=== PATIENT | female | born 1940 | race Caucasian/White ===

== ENCOUNTER 2019-03-04 16:40 | Inpatient (IN) | payer OTHER ==
[2019-03-04 17:34] VITALS: BMI 27.0
--- NOTE | 2019-03-04 20:06 | HP ---
COWS - Scale Resting Pulse: 2= [place] 101-120 Sweatin=Flushed/Facial Moisture (Patient w/ elevated blood pressure despite taking HTN meds earlier.) Restless Observation: 0= Sits Still Pupil Size: 2= Moderately Dilated (Pupils = 5 mm) Bone or Joint Aches: 0= None Runny Nose/ Eye Tearin= Runny Nose/Eyes GI Upset > 30mins: 0= None Tremor Observation: 2= Slight Tremor Visible Yawning Observation: 0= None Anxiety or Irritability: 1=Feels Anxious/Irritable Goose Flesh Skin: 0=Smooth Skin COWS Score: 11 CIWA Score - Admission Criteria OASAS Guidelines: Admission for Medically Managed Detox: Requires at least one of the followin. CIWA greater than 12 2. Seizures within the past 24 hours 3. Delirium tremens within the past 24 hours 4. Hallucinations within the past 24 hours 5. Acute intervention needed for co occurring medical disorder 6. Acute intervention needed for co occurring psychiatric disorder 7. Severe withdrawal that cannot be handled at a lower level of care (continued vomiting, continued diarrhea, abnormal vital signs) requiring intravenous medication and/or fluids 8. Admission ROS [facility] Chief Complaint: Here to get off of oxycodone. Allergies/Adverse Reactions: Allergies Allergy/AdvReac Type Severity Reaction Status Date / Time No Known Allergies Allergy Verified 03/04/19 17:24 History of Present Illness: 79 yo w/ hx prescribed opiate use for 5 years now being discontinued by PCP. I spoke w/ Dr. Tommie Ruiz who states that patient can be detoxed from oxycodone and he will no longer be prescribing. [facility] patient was also subsidizing medication w/ husbands opiates. Was recommended by [facility] ED for detox beciause of hx taking more medications than prescribed. . ANDREW: 0.0 UTox: + OXY Oxycodone use x 5 years . States was taking 4 per day and then increased to between 6-8/day. Last took one tab this am. Fiorecet(w/codeine) x 5 years. States was taking 2-3 tabs/day. Denies alcohol use. Denies nicotine use. Denies blackouts, seizures, overdoses. Denies falls. PMHx: HTN. Headaches, GERD, UTI MHHx: Anxiety, Insomnia. Denies depression. Denies thoughts of harming self or others. SHx: Domiciled. Retired. Denies legal issues. Based on age and substance use hx, will start on a moderate split dose taper. Patient Name: Josie Castle Date: 1940 Address: [address] [place] [address] Sex: Female Rx Written Rx Dispensed Drug Quantity Days Supply Prescriber Name 02/28/2019 02/28/2019 oxycodone-acetaminophen 10-325 mg tab 15 4 Sagrario Stewart Patient Name: Josie Castle Date: 1940 Address: [address] [place] [address] Sex: Female Rx Written Rx Dispensed Drug Quantity Days Supply Prescriber Name 12/06/2018 02/09/2019 aiuoztztko-fzrq-scrktorosawlo-cod cap 120 30 Tommie Ruiz MD 01/27/2019 02/09/2019 zolpidem tartrate 10 mg tablet 30 30 Tommie Ruiz MD 01/24/2019 02/01/2019 oxycodone-acetaminophen 10-325 mg tab 120 30 Tommie Ruiz MD 01/25/2019 01/25/2019 oxycodone hcl 5 mg tablet 12 3 Tommie Ruiz MD 01/24/2019 01/24/2019 clonazepam 0.5 mg tablet 60 30 Tommie Ruiz MD 08/30/2018 01/11/2019 zolpidem tartrate 10 mg tablet 30 30 Tommie Ruiz MD 12/06/2018 01/11/2019 zskxywkkrm-mzhc-oyxrwoqmwlitj-cod cap 120 30 Tommie Ruiz MD 12/29/2018 01/02/2019 oxycodone-acetaminophen 10-325 mg tab 120 30 Tommie Ruiz MD 08/30/2018 12/17/2018 zolpidem tartrate 10 mg tablet 30 30 Tommie Ruiz MD 12/06/2018 12/17/2018 scxweqjfal-dhpj-oahacjnatryib-cod cap 120 30 Tommie Ruiz MD 12/06/2018 12/08/2018 oxycodone-acetaminophen 10-325 mg tab 120 30 Tommie Ruiz MD 07/15/2018 11/22/2018 spvpsvvxlc-kxjg-knbufecgqdhjf-cod cap 120 30 Thanh Ruizw M MD 08/30/2018 11/22/2018 zolpidem tartrate 10 mg tablet 30 30 RuizTommie MD 11/18/2018 11/22/2018 clonazepam 0.5 mg tablet 60 30 RuizTommie MD 11/09/2018 11/12/2018 oxycodone-acetaminophen 10-325 mg tab 120 30 Ruiz, Tommie Lugo MD 07/15/2018 10/28/2018 taraowofpb-tqtg-znxebtgovtffv-cod cap 120 30 Ruiz, Tommie Lugo MD 08/30/2018 10/28/2018 zolpidem tartrate 10 mg tablet 30 30 Ruiz, Tommie Lugo MD 10/14/2018 10/17/2018 oxycodone-acetaminophen 10-325 mg tab 120 30 Ruiz, Tommie Lugo MD 07/15/2018 10/03/2018 mifnlnaxeh-teep-lyfsoiuxemblq-cod cap 120 30 Ruiz, Tommie Lugo MD 08/30/2018 10/03/2018 zolpidem tartrate 10 mg tablet 30 30 RuizTommie MD 09/20/2018 09/21/2018 oxycodone-acetaminophen 10-325 mg tab 120 30 Ruiz, Tommie Lugo MD 07/15/2018 09/07/2018 fredxkrdca-iqxu-jkwmpuluobfxn-cod cap 120 30 RuizTommie MD 08/30/2018 09/07/2018 zolpidem tartrate 10 mg tablet 30 30 RuizTommie MD 09/06/2018 09/07/2018 clonazepam 0.5 mg tablet [address] [facility] 08/26/2018 08/27/2018 oxycodone-acetaminophen 10-325 mg tab 120 30 RuizTommie MD 04/06/2018 08/12/2018 zolpidem tartrate 10 mg tablet 30 30 RuizTommei MD 07/15/2018 08/12/2018 ypjlcdzlam-oywl-nlalzkseczooq-cod cap 120 30 RuizTommie MD 07/29/2018 08/02/2018 oxycodone-acetaminophen 10-325 mg tab 120 30 RuizTommie MD 04/06/2018 07/19/2018 zolpidem tartrate 10 mg tablet 30 30 RuizTommie MD 07/15/2018 07/19/2018 oleouwwzos-txsk-hgfshgostxenl-cod cap 120 30 Tommie Ruiz MD 07/01/2018 07/08/2018 oxycodone-acetaminophen 10-325 mg tab 120 [address] [facility] 07/01/2018 07/06/2018 clonazepam 0.5 mg tablet 60 [address] [facility] 02/16/2018 06/24/2018 kernmplbrp-jycj-smqbqifpecqwj-cod cap 120 [address] [facility] 04/06/2018 06/24/2018 zolpidem tartrate 10 mg tablet 30 30 Tommie Ruiz MD 06/07/2018 06/13/2018 oxycodone-acetaminophen 10-325 mg tab 120 30 Tommie Ruiz MD 02/16/2018 05/30/2018 dmiwjmthpq-spqc-vxayzztbcjwjo-cod cap [address] [facility] 04/06/2018 05/30/2018 zolpidem tartrate 10 mg tablet 30 30 RuizTommie MD 05/13/2018 05/18/2018 oxycodone-acetaminophen 10-325 mg tab 120 30 Tommie Ruiz MD 02/16/2018 05/05/2018 cphgzlejcv-wilk-vxyzoqlvcsoxs-cod cap [address] [facility] 04/06/2018 05/05/2018 zolpidem tartrate 10 mg tablet 30 30 RuizTommie MD 04/06/2018 04/23/2018 oxycodone-acetaminophen 10-325 mg tab 120 30 Tommie Ruiz MD 02/16/2018 04/11/2018 rtpiyxutjz-eqvt-wratrjuoxjjbe-cod cap 120 [address] [facility] 04/06/2018 04/08/2018 zolpidem tartrate 10 mg tablet 30 30 Tommie Ruiz MD 04/06/2018 04/08/2018 clonazepam 0.5 mg tablet 60 30 Tommie Ruiz MD 03/15/2018 03/28/2018 oxycodone-acetaminophen 10-325 mg tab [address] [facility] 02/16/2018 03/18/2018 rjeuxslifd-msza-sjwimtfktfqui-cod cap [address] [facility] 10/22/2017 03/15/2018 zolpidem tartrate 10 mg tablet 30 30 Tommie Ruiz MD Exam Limitations: No Limitations - Ebola screening Have you traveled outside of the country in the last 21 days: No (N) Have you had contact with anyone from an Ebola affected area: No Do you have a fever: No - Review of Systems Constitutional: Diaphoresis, Changes in sleep (Diffciulty falling asleep - takes ambien) EENT: reports: Blurred Vision, Nose Congestion Respiratory: reports: No Symptoms reported Cardiac: reports: No Symptoms Reported GI: reports: Diarrhea (watery, brownish-yellowish), Indigestion (GERD) : reports: Burning (Being treated for UTI) Musculoskeletal: reports: No Symptoms Reported Integumentary: reports: No Symptoms Reported, Other (Bruises from bloodwork.) Neuro: reports: Tremors Endocrine: reports: No Symptoms Reported Hematology: reports: No Symptoms Reported Psychiatric: reports: Judgement Intact, Orientated x3, Anxious Patient History - PPD History Previous Implant?: No PPD to be Administered?: Yes - Smoking Cessation Smoking history: Former smoker Have you smoked in the past 12 months: No Hx Chewing Tobacco Use: No Initiated information on smoking cessation: No - Substance & Tx. History Hx Alcohol Use: No Hx Substance Use: No Substance Use Type: Prescribed (Oxycodone) Hx Substance Use Treatment: No - Substances abused Other Other (specify): Percocet Substance route: Oral Frequency: Daily Amount used: 4pills/day Age of first use: 74 Date of last use: 03/04/19 Admission Physical Exam S - Vital Signs Vital Signs: Vital Signs - 24 hr 03/04/19 17:31 Temperature 98.0 F Pulse Rate 104 H Respiratory 18 Rate Blood Pressure 153/89 - Physical General Appearance: Yes: Nourished, Mild Distress, Tremorous HEENTM: Yes: EOMI, Hearing grossly Normal, Normocephalic, Normal Voice, MARII ( Pupils = 5 mm), Pharynx Normal, Nasal Congestion, Rhinorrhea Respiratory: Yes: Lungs Clear (Pulse )x = 97 %), Normal Breath Sounds, No Respiratory Distress Neck: Yes: No masses,lesions,Nodules, Supple Breast: Yes: Breast Exam Deferred Cardiology: Yes: Regular Rhythm, S1, S2, Tachycardia (HR: 104) Abdominal: Yes: Non Tender, Soft, Increased Bowel Sounds Genitourinary: Yes: Other (On antibiotics for UTI) Musculoskeletal: Yes: full range of Motion Extremities: Yes: Normal Capillary Refill, Tremors 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: 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: 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, Fully Oriented, Alert, Motor Strength 5/5 Integumentary: Yes: Normal Color, Warm, Diaphoresis (Increased facial moisture) Lymphatic: Yes: Within Normal Limits - Diagnostic (1) Opioid dependence with withdrawal Current Visit: Yes Status: Acute (2) Essential (primary) hypertension Current Visit: Yes Status: Chronic (3) GERD (gastroesophageal reflux disease) Current Visit: Yes Status: Chronic Qualifiers: Esophagitis presence: without esophagitis Qualified Code(s): K21.9 - Gastro -esophageal reflux disease without esophagitis (4) History of UTI Current Visit: Yes Status: Acute Comment: on prescribed Cipro (5) Tachycardia Current Visit: Yes Status: Acute Cleared for Admission S - Detox or Rehab [facility] Level of Care: Medically Managed Detox Regimen/Protocol: Methadone Claeared for Rehab Admission: No Breathalyzer - Breathalyzer Breathalyzer: 0 Urine Drug Screen - Test Device Lot number: [id number] Expiration date: 10/12/20 - Control Is test valid?: Yes - Results Drug screen NEGATIVE: No Urine drug screen results: OXY-Oxycodone Inpatient Rehab Admission - Rehab Decision to Admit Inpatient rehab admission?: No
[2019-03-04] MEDS ORDERED: MAGNESIUM CITRATE 300 ML BOTTLE PO PRN (20:29)
[2019-03-04] MEDS ORDERED: ACETAMINOPHEN 325 MG TABLET (FP) PO PRN (20:29)
[2019-03-04] MEDS ORDERED: MAG HYDROX/AL HYDROX/SIMETH 30 ML UNIT-DOSE CUP PO PRN (20:29)
[2019-03-04] MEDS ORDERED: MAGNESIUM HYDROX 2400MG/30ML ORAL SUSPENSION 30 ML CUP PO PRN (20:29)
[2019-03-04] MEDS ORDERED: MENTHOL/PHENOL 1 EACH UD MM PRN (20:29)
[2019-03-04] MEDS ORDERED: METHADONE HCL 5 MG TABLET (FOR DETOX USE ONLY) PO ONE (22:00)
[2019-03-04] MEDS ORDERED: METHADONE HCL 5 MG TABLET (FOR DETOX USE ONLY) PO SCH (22:00)
[2019-03-04] MEDS ORDERED: traZODone HCL 50 MG TABLET (FP) PO ONE (23:00)
[2019-03-04] MEDS: THIAMINE HCL 100 MG TABLET (FP) PO SCH (23:15)
[2019-03-04] MEDS: CIPROFLOXACIN 500 MG TABLET (RESTRICTED TO ID) PO SCH (23:15)
[2019-03-04] MEDS: FAMOTIDINE 20 MG TABLET PO SCH (23:15)
[2019-03-05] MEDS: IBUPROFEN 400 MG TABLET (FP) PO PRN ×3 (08:42→21:22)
[2019-03-05 09:31] LABS: HEMATOCRIT 36.3 % (32.4-45.2); HEMOGLOBIN 11.9 GM/dL (10.7-15.3); MCH 32.7 pg (25.7-33.7); MCHC 32.8 g/dl (32.0-36.0); MEAN CELL VOLUME 99.8 fl (80-96); MEAN PLT VOLUME 10.4 fl (7.5-11.1); PLATELET COUNT 156 K/MM3 (134-434); RBC 3.64 M/mm3 (3.60-5.2); RDW 13.5 % (11.6-15.6); WHITE BLOOD COUNT 6.4 K/mm3 (4.0-10.0)
[2019-03-05] MEDS: PRENATAL VITAMINS W/ FOLIC ACID TABLET (FP) PO SCH (10:15)
[2019-03-05] MEDS: FAMOTIDINE 20 MG TABLET PO SCH ×2 (10:15→21:19)
[2019-03-05] MEDS: amLODIPine BESYLATE 10 MG TABLET (FP) PO SCH (10:15)
[2019-03-05] MEDS: METHADONE HCL 5 MG TABLET (FOR DETOX USE ONLY) PO SCH ×2 (10:15→21:20)
[2019-03-05] MEDS: CIPROFLOXACIN 500 MG TABLET (RESTRICTED TO ID) PO SCH ×2 (10:16→21:19)
[2019-03-05] MEDS: METHOCARBAMOL 500 MG TABLET PO PRN (10:16)
[2019-03-05 10:17] LABS: ALBUMIN 3.1 g/dl (3.4-5.0); BILIRUBIN,TOTAL 0.4 mg/dL (0.2-1); BLOOD UREA NITROGEN 19.6 mg/dL (7-18); CALCIUM 8.7 mg/dL (8.5-10.1); TOT PROT 5.9 g/dl (6.4-8.2)
--- NOTE | 2019-03-05 12:22 | PN ---
S CIWA - CIWA Score Nausea/Vomitin-No Nausea/No Vomiting Muscle Tremors: None Anxiety: 3 Agitation: 0-Normal Activity Paroxysmal Sweats: 3 Orientation: 0-Oriented Tacttile Disturbances: 0-None Auditory Disturbances: 0-None Visual Disturbances: 0-None Headache: 2-Mild CIWA-Ar Total Score: 8 BHS Progress Note (SOAP) Subjective: c/o anxiety, headache, and sweats. Objective: 03/05/19 12:23 Vital Signs 03/05/19 03/05/19 06:42 09:27 Temperature 98.8 F 97.2 F L Pulse Rate 78 109 H Respiratory 18 16 Rate Blood Pressure 123/59 L 157/85 Laboratory Last Values WBC 6.4 K/mm3 (4.0-10.0) 03/05/19 07:40 RBC 3.64 M/mm3 (3.60-5.2) 03/05/19 07:40 Hgb 11.9 GM/dL (10.7-15.3) 03/05/19 07:40 Hct 36.3 % (32.4-45.2) 03/05/19 07:40 MCV 99.8 fl (80-96) H 03/05/19 07:40 MCH 32.7 pg (25.7-33.7) 03/05/19 07:40 MCHC 32.8 g/dl (32.0-36.0) 03/05/19 07:40 RDW 13.5 % (11.6-15.6) 03/05/19 07:40 Plt Count 156 K/MM3 (134-434) 03/05/19 07:40 MPV 10.4 fl (7.5-11.1) 03/05/19 07:40 Sodium 142 mmol/L (136-145) 03/05/19 07:40 Potassium 3.0 mmol/L (3.5-5.1) L 03/05/19 07:40 Chloride 110 mmol/L (98-107) H 03/05/19 07:40 Carbon Dioxide 24 mmol/L (21-32) 03/05/19 07:40 Anion Gap 8 MMOL/L (8-16) 03/05/19 07:40 BUN 19.6 mg/dL (7-18) H 03/05/19 07:40 Creatinine 1.0 mg/dL (0.55-1.3) 03/05/19 07:40 Est GFR (CKD-EPI)AfAm 62.93 03/05/19 07:40 Est GFR (CKD-EPI)NonAf 54.30 03/05/19 07:40 Random Glucose 91 mg/dL (74-106) 03/05/19 07:40 Calcium 8.7 mg/dL (8.5-10.1) 03/05/19 07:40 Total Bilirubin 0.4 mg/dL (0.2-1) 03/05/19 07:40 AST 5 U/L (15-37) L 03/05/19 07:40 ALT 12 U/L (13-61) L 03/05/19 07:40 Alkaline Phosphatase 86 U/L (45-117) 03/05/19 07:40 Total Protein 5.9 g/dl (6.4-8.2) L 03/05/19 07:40 Albumin 3.1 g/dl (3.4-5.0) L 03/05/19 07:40 Labs noted. Assessment: 03/05/19 12:23 AOX3, in no respiratory distress. Full ROM, ambulating in the unit. Withdrawal symptoms. Plan: continue detox.
--- NOTE | 2019-03-05 14:36 | EKG ---
Test Reason : Blood Pressure : / mmHG Vent. Rate : 091 BPM Atrial Rate : 091 BPM P-R Int : 156 ms QRS Dur : 088 ms QT Int : 348 ms P-R-T Axes : 049 005 035 degrees QTc Int : 428 ms NORMAL SINUS RHYTHM POSSIBLE LEFT ATRIAL ENLARGEMENT LEFT VENTRICULAR HYPERTROPHY ABNORMAL ECG NO PREVIOUS ECGS AVAILABLE Confirmed by TYSON JANG MD ([id number]) on 03/05/2019 2:35:45 PM Referred By: Miguel Moore Confirmed By:TYSON JANG MD
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
[2019-03-05] MEDS: THIAMINE HCL 100 MG TABLET (FP) PO SCH (21:20)
[2019-03-05] MEDS ORDERED: MELATONIN 5 MG TABLETS PO PRN (23:35)
[2019-03-06] MEDS: IBUPROFEN 400 MG TABLET (FP) PO PRN ×3 (06:10→22:04)
[2019-03-06] MEDS: CIPROFLOXACIN 500 MG TABLET (RESTRICTED TO ID) PO SCH ×2 (10:33→22:05)
[2019-03-06] MEDS: FAMOTIDINE 20 MG TABLET PO SCH ×2 (10:34→22:04)
[2019-03-06] MEDS: METHADONE HCL 5 MG TABLET (FOR DETOX USE ONLY) PO SCH ×2 (10:34→22:05)
[2019-03-06] MEDS: amLODIPine BESYLATE 10 MG TABLET (FP) PO SCH (10:34)
[2019-03-06] MEDS: PRENATAL VITAMINS W/ FOLIC ACID TABLET (FP) PO SCH (10:34)
--- NOTE | 2019-03-06 12:18 | PN ---
BHS COWS - Scale Resting Pulse: 1= [place] 81-100 Sweatin= Chills/Flushing Restless Observation: 0= Sits Still Pupil Size: 1= Pupils >than Normal Bone or Joint Aches: 1= Mild Discomfort Runny Nose/ Eye Tearin= Nasal Congestion GI Upset > 30mins: 0= None Tremor Observation of Outstretched Hands: 1= Tremor [place], Not Seen Yawning Observation: 0= None Anxiety or Irritability: 1=Feels Anxious/Irritable Goose Flesh Skin: 0=Smooth Skin COWS Score: 7 BHS Progress Note (SOAP) Subjective: 79 years old female admitted on 03/04/19 for opiate withdrawal sx management treating with methadone detox regimen chronic headache taking motrin 600 mg po discontinue motrin 400 mg po begin motrin 600 mg po q8h prn c/o trouble sleep at night belsomra 5 mg po x 1 itchy throat no oralpharyngeal redness no swell mucinx 600 mg po bid Objective: 03/06/19 12:21 Vital Signs Temperature 99.0 F 03/06/19 09:14 Pulse Rate 90 03/06/19 09:14 Respiratory Rate 18 03/06/19 09:14 Blood Pressure 147/71 03/06/19 09:14 O2 Sat by Pulse Oximetry (%) 03/06/19 12:22 Laboratory Last Values WBC 6.4 K/mm3 (4.0-10.0) 03/05/19 07:40 RBC 3.64 M/mm3 (3.60-5.2) 03/05/19 07:40 Hgb 11.9 GM/dL (10.7-15.3) 03/05/19 07:40 Hct 36.3 % (32.4-45.2) 03/05/19 07:40 MCV 99.8 fl (80-96) H 03/05/19 07:40 MCH 32.7 pg (25.7-33.7) 03/05/19 07:40 MCHC 32.8 g/dl (32.0-36.0) 03/05/19 07:40 RDW 13.5 % (11.6-15.6) 03/05/19 07:40 Plt Count 156 K/MM3 (134-434) 03/05/19 07:40 MPV 10.4 fl (7.5-11.1) 03/05/19 07:40 Sodium 142 mmol/L (136-145) 03/05/19 07:40 Potassium 3.0 mmol/L (3.5-5.1) L 03/05/19 07:40 Chloride 110 mmol/L (98-107) H 03/05/19 07:40 Carbon Dioxide 24 mmol/L (21-32) 03/05/19 07:40 Anion Gap 8 MMOL/L (8-16) 03/05/19 07:40 BUN 19.6 mg/dL (7-18) H 03/05/19 07:40 Creatinine 1.0 mg/dL (0.55-1.3) 03/05/19 07:40 Est GFR (CKD-EPI)AfAm 62.93 03/05/19 07:40 Est GFR (CKD-EPI)NonAf 54.30 03/05/19 07:40 Random Glucose 91 mg/dL (74-106) 03/05/19 07:40 Calcium 8.7 mg/dL (8.5-10.1) 03/05/19 07:40 Total Bilirubin 0.4 mg/dL (0.2-1) 03/05/19 07:40 AST 5 U/L (15-37) L 03/05/19 07:40 ALT 12 U/L (13-61) L 03/05/19 07:40 Alkaline Phosphatase 86 U/L (45-117) 03/05/19 07:40 Total Protein 5.9 g/dl (6.4-8.2) L 03/05/19 07:40 Albumin 3.1 g/dl (3.4-5.0) L 03/05/19 07:40 RPR Titer Nonreactive (NONREACTIVE) 03/05/19 07:40 lab noted low K+ K+ supplement 03/06/19 12:26 repeat K+ Assessment: 03/06/19 12:26 opiate withdrawal sx Plan: methadone regimen
[2019-03-06] MEDS ORDERED: POTASSIUM CHLORIDE ORAL LIQUID 20 MEQ/15 ML PO ONE ×3 (13:00→17:00)
[2019-03-06] MEDS: guaiFENesin 600 MG TABLET.ER (FP) PO SCH ×2 (15:34→22:05)
[2019-03-06] MEDS ORDERED: SUVOREXANT 5 MG TABLET PO ONE (22:00)
[2019-03-06] MEDS: THIAMINE HCL 100 MG TABLET (FP) PO SCH (22:04)
[2019-03-06] MEDS: ACETAMINOPHEN 325 MG TABLET (FP) PO PRN (23:52)
[2019-03-07] MEDS: IBUPROFEN 600 MG TABLET (FP) PO PRN ×3 (07:18→22:28)
[2019-03-07] MEDS: amLODIPine BESYLATE 10 MG TABLET (FP) PO SCH (10:20)
[2019-03-07] MEDS: PRENATAL VITAMINS W/ FOLIC ACID TABLET (FP) PO SCH (10:20)
[2019-03-07] MEDS: METHADONE HCL 5 MG TABLET (FOR DETOX USE ONLY) PO SCH (10:20)
[2019-03-07] MEDS: FAMOTIDINE 20 MG TABLET PO SCH ×2 (10:21→22:27)
[2019-03-07] MEDS: guaiFENesin 600 MG TABLET.ER (FP) PO SCH ×2 (10:21→22:27)
[2019-03-07 11:54] LABS: EPI CELLS 2.7 /HPF (0-5/HPF); HYALINE CASTS 1 /lpf (0-8); PH,URINE 5.5 (5.0-8.0); URINE APPEARANCE CLEAR; URINE BACTERIA 162.1 /hpf (NEGATIVE); URINE BILIRUBIN NEGATIVE (NEGATIVE); URINE COLOR YELLOW; URINE GLUCOSE (UA) NEGATIVE (NEGATIVE); URINE KETONE NEGATIVE (NEGATIVE); URINE LEUK ESTERASE NEGATIVE (NEGATIVE); URINE NITRITE NEGATIVE (NEGATIVE); URINE PROTEIN 1+ (NEGATIVE); URINE RBC 2 /hpf (0-4); URINE UROBILINOGEN 0.2 mg/dL (0.2-1.0); URINE WBC 2 /hpf (0-5)
--- NOTE | 2019-03-07 13:02 | PN ---
BHS COWS - Scale Resting Pulse: 1= [place] 81-100 Sweatin= No chills or Flushing Restless Observation: 0= Sits Still Pupil Size: 0= Normal to Room Light Bone or Joint Aches: 2= Severe Diffuse Aches Runny Nose/ Eye Tearin= None GI Upset > 30mins: 0= None Tremor Observation of Outstretched Hands: 0= None Yawning Observation: 0= None Anxiety or Irritability: 1=Feels Anxious/Irritable Goose Flesh Skin: 0=Smooth Skin COWS Score: 4 BHS Progress Note (SOAP) Subjective: 79 years old female admitted on 03/04/19 for opiate withdrawal sx management treating with methadone detox regimen feeling better today requests to be seen by a papier mache' molder Objective: 03/07/19 13:01 Vital Signs Temperature 98.6 F 03/07/19 09:29 Pulse Rate 87 03/07/19 09:29 Respiratory Rate 18 03/07/19 09:29 Blood Pressure 150/74 03/07/19 09:29 O2 Sat by Pulse Oximetry (%) Laboratory Last Values WBC 6.4 K/mm3 (4.0-10.0) 03/05/19 07:40 RBC 3.64 M/mm3 (3.60-5.2) 03/05/19 07:40 Hgb 11.9 GM/dL (10.7-15.3) 03/05/19 07:40 Hct 36.3 % (32.4-45.2) 03/05/19 07:40 MCV 99.8 fl (80-96) H 03/05/19 07:40 MCH 32.7 pg (25.7-33.7) 03/05/19 07:40 MCHC 32.8 g/dl (32.0-36.0) 03/05/19 07:40 RDW 13.5 % (11.6-15.6) 03/05/19 07:40 Plt Count 156 K/MM3 (134-434) 03/05/19 07:40 MPV 10.4 fl (7.5-11.1) 03/05/19 07:40 Sodium 142 mmol/L (136-145) 03/05/19 07:40 Potassium 4.0 mmol/L (3.5-5.1) 03/07/19 07:45 Chloride 110 mmol/L (98-107) H 03/05/19 07:40 Carbon Dioxide 24 mmol/L (21-32) 03/05/19 07:40 Anion Gap 8 MMOL/L (8-16) 03/05/19 07:40 BUN 19.6 mg/dL (7-18) H 03/05/19 07:40 Creatinine 1.0 mg/dL (0.55-1.3) 03/05/19 07:40 Est GFR (CKD-EPI)AfAm 62.93 03/05/19 07:40 Est GFR (CKD-EPI)NonAf 54.30 03/05/19 07:40 Random Glucose 91 mg/dL (74-106) 03/05/19 07:40 Calcium 8.7 mg/dL (8.5-10.1) 03/05/19 07:40 Total Bilirubin 0.4 mg/dL (0.2-1) 03/05/19 07:40 AST 5 U/L (15-37) L 03/05/19 07:40 ALT 12 U/L (13-61) L 03/05/19 07:40 Alkaline Phosphatase 86 U/L (45-117) 03/05/19 07:40 Total Protein 5.9 g/dl (6.4-8.2) L 03/05/19 07:40 Albumin 3.1 g/dl (3.4-5.0) L 03/05/19 07:40 Urine Color Yellow 03/07/19 08:00 Urine Appearance Clear 03/07/19 08:00 Urine pH 5.5 (5.0-8.0) 03/07/19 08:00 Ur Specific [place] 1.022 (1.010-1.035) 03/07/19 08:00 Urine Protein 1+ (NEGATIVE) H 03/07/19 08:00 Urine Glucose (UA) Negative (NEGATIVE) 03/07/19 08:00 Urine Ketones Negative (NEGATIVE) 03/07/19 08:00 Urine Blood Negative (NEGATIVE) 03/07/19 08:00 Urine Nitrite Negative (NEGATIVE) 03/07/19 08:00 Urine Bilirubin Negative (NEGATIVE) 03/07/19 08:00 Urine Urobilinogen 0.2 mg/dL (0.2-1.0) 03/07/19 08:00 Ur Leukocyte Esterase Negative (NEGATIVE) 03/07/19 08:00 Urine WBC (Auto) 2 /hpf (0-5) 03/07/19 08:00 Urine RBC (Auto) 2 /hpf (0-4) 03/07/19 08:00 Urine Casts (Auto) 1 /lpf (0-8) 03/07/19 08:00 U Epithel Cells (Auto) 2.7 /HPF (0-5/HPF) 03/07/19 08:00 Urine Bacteria (Auto) 162.1 /hpf (NEGATIVE) 03/07/19 08:00 RPR Titer Nonreactive (NONREACTIVE) 03/05/19 07:40 lab noted bp elevation begin lisinopril 10 mg po bid Assessment: 03/07/19 13:02 opiate withdrawal Plan: methadone regimen
[2019-03-07] MEDS: LISINOPRIL 10 MG TABLET (FP) PO SCH ×2 (15:06→22:27)
[2019-03-07] MEDS: ACETAMINOPHEN 325 MG TABLET (FP) PO PRN (17:47)
[2019-03-07] MEDS: THIAMINE HCL 100 MG TABLET (FP) PO SCH (22:27)
[2019-03-07] MEDS: SUVOREXANT 5 MG TABLET PO PRN (23:16)
[2019-03-08] MEDS: IBUPROFEN 600 MG TABLET (FP) PO PRN ×3 (05:58→22:23)
[2019-03-08] MEDS: PRENATAL VITAMINS W/ FOLIC ACID TABLET (FP) PO SCH (10:26)
[2019-03-08] MEDS: LISINOPRIL 10 MG TABLET (FP) PO SCH (10:26)
[2019-03-08] MEDS: METHADONE HCL 5 MG TABLET (FOR DETOX USE ONLY) PO SCH (10:26)
[2019-03-08] MEDS: FAMOTIDINE 20 MG TABLET PO SCH ×2 (10:26→22:22)
[2019-03-08] MEDS: amLODIPine BESYLATE 10 MG TABLET (FP) PO SCH (10:26)
[2019-03-08] MEDS: guaiFENesin 600 MG TABLET.ER (FP) PO SCH ×2 (10:26→22:22)
[2019-03-08] MEDS: BISMUTH SUBSALICYLATE 524 MG/30 ML UD PO PRN ×3 (10:27→17:53)
--- NOTE | 2019-03-08 12:04 | PN ---
[facility] COWS - Scale Resting Pulse: 1= [place] 81-100 Sweatin= No chills or Flushing Restless Observation: 0= Sits Still Pupil Size: 0= Normal to Room Light Bone or Joint Aches: 1= Mild Discomfort Runny Nose/ Eye Tearin= None GI Upset > 30mins: 0= None Tremor Observation of Outstretched Hands: 0= None Yawning Observation: 0= None Anxiety or Irritability: 0= None Goose Flesh Skin: 0=Smooth Skin COWS Score: 2 [facility] Progress Note (SOAP) Subjective: 79 years old female admitted on 03/04/19 for opiate withdrawal sx management treating with methadone detox regimen ate breakfast and lunch lying on bed most the day health teaching on sleep hygiene reports that she needs methadone for "headaches" "general body aches" and "joints pain" discuss medication assisted treatment program and nut picker narcan from pharmacy Objective: 03/08/19 12:01 Vital Signs Temperature 98.5 F 03/08/19 09:05 Pulse Rate 82 03/08/19 09:05 Respiratory Rate 18 03/08/19 09:05 Blood Pressure 149/72 03/08/19 09:05 O2 Sat by Pulse Oximetry (%) Laboratory Last Values WBC 6.4 K/mm3 (4.0-10.0) 03/05/19 07:40 RBC 3.64 M/mm3 (3.60-5.2) 03/05/19 07:40 Hgb 11.9 GM/dL (10.7-15.3) 03/05/19 07:40 Hct 36.3 % (32.4-45.2) 03/05/19 07:40 MCV 99.8 fl (80-96) H 03/05/19 07:40 MCH 32.7 pg (25.7-33.7) 03/05/19 07:40 MCHC 32.8 g/dl (32.0-36.0) 03/05/19 07:40 RDW 13.5 % (11.6-15.6) 03/05/19 07:40 Plt Count 156 K/MM3 (134-434) 03/05/19 07:40 MPV 10.4 fl (7.5-11.1) 03/05/19 07:40 Sodium 142 mmol/L (136-145) 03/05/19 07:40 Potassium 4.0 mmol/L (3.5-5.1) 03/07/19 07:45 Chloride 110 mmol/L (98-107) H 03/05/19 07:40 Carbon Dioxide 24 mmol/L (21-32) 03/05/19 07:40 Anion Gap 8 MMOL/L (8-16) 03/05/19 07:40 BUN 19.6 mg/dL (7-18) H 03/05/19 07:40 Creatinine 1.0 mg/dL (0.55-1.3) 03/05/19 07:40 Est GFR (CKD-EPI)AfAm 62.93 03/05/19 07:40 Est GFR (CKD-EPI)NonAf 54.30 03/05/19 07:40 Random Glucose 91 mg/dL (74-106) 03/05/19 07:40 Calcium 8.7 mg/dL (8.5-10.1) 03/05/19 07:40 Total Bilirubin 0.4 mg/dL (0.2-1) 03/05/19 07:40 AST 5 U/L (15-37) L 03/05/19 07:40 ALT 12 U/L (13-61) L 03/05/19 07:40 Alkaline Phosphatase 86 U/L (45-117) 03/05/19 07:40 Total Protein 5.9 g/dl (6.4-8.2) L 03/05/19 07:40 Albumin 3.1 g/dl (3.4-5.0) L 03/05/19 07:40 Urine Color Yellow 03/07/19 08:00 Urine Appearance Clear 03/07/19 08:00 Urine pH 5.5 (5.0-8.0) 03/07/19 08:00 Ur Specific [place] 1.022 (1.010-1.035) 03/07/19 08:00 Urine Protein 1+ (NEGATIVE) H 03/07/19 08:00 Urine Glucose (UA) Negative (NEGATIVE) 03/07/19 08:00 Urine Ketones Negative (NEGATIVE) 03/07/19 08:00 Urine Blood Negative (NEGATIVE) 03/07/19 08:00 Urine Nitrite Negative (NEGATIVE) 03/07/19 08:00 Urine Bilirubin Negative (NEGATIVE) 03/07/19 08:00 Urine Urobilinogen 0.2 mg/dL (0.2-1.0) 03/07/19 08:00 Ur Leukocyte Esterase Negative (NEGATIVE) 03/07/19 08:00 Urine WBC (Auto) 2 /hpf (0-5) 03/07/19 08:00 Urine RBC (Auto) 2 /hpf (0-4) 03/07/19 08:00 Urine Casts (Auto) 1 /lpf (0-8) 03/07/19 08:00 U Epithel Cells (Auto) 2.7 /HPF (0-5/HPF) 03/07/19 08:00 Urine Bacteria (Auto) 162.1 /hpf (NEGATIVE) 03/07/19 08:00 RPR Titer Nonreactive (NONREACTIVE) 03/05/19 07:40 lab noted bp elevation 03/08/19 12:04 increase lisinopril to 10 mg po am and 20 mg po hs Assessment: 03/08/19 12:04 opiate withdrawal Plan: methadone regimen
[2019-03-08] MEDS ORDERED: LISINOPRIL 20 MG TABLET (FP) PO SCH (22:00)
[2019-03-08] MEDS: THIAMINE HCL 100 MG TABLET (FP) PO SCH (22:22)
[2019-03-08] MEDS: SUVOREXANT 5 MG TABLET PO PRN (23:25)
[2019-03-09] MEDS: BISMUTH SUBSALICYLATE 524 MG/30 ML UD PO PRN ×3 (04:42→12:32)
[2019-03-09] MEDS: IBUPROFEN 600 MG TABLET (FP) PO PRN (06:45)
[2019-03-09] MEDS: METHOCARBAMOL 500 MG TABLET PO PRN ×2 (06:46→12:46)
[2019-03-09 06:53] VITALS: TEMP 98.6
[2019-03-09] MEDS: PRENATAL VITAMINS W/ FOLIC ACID TABLET (FP) PO SCH (09:05)
[2019-03-09] MEDS: amLODIPine BESYLATE 10 MG TABLET (FP) PO SCH (09:05)
[2019-03-09] MEDS: FAMOTIDINE 20 MG TABLET PO SCH (09:05)
[2019-03-09] MEDS: guaiFENesin 600 MG TABLET.ER (FP) PO SCH (09:05)
[2019-03-09 09:24] VITALS: BP 147/75; PULSE 83
[2019-03-09] MEDS ORDERED: METHADONE HCL 5 MG TABLET (FOR DETOX USE ONLY) PO ONE (10:00)
[2019-03-09] MEDS ORDERED: LISINOPRIL 10 MG TABLET (FP) PO SCH (10:00)
--- NOTE | 2019-03-09 14:59 | DS ---
[facility] Detox Discharge Summary Admission Date: 03/04/19 Discharge Date: 03/09/19 - History Present History: Opioid Dependence Additional Comments: 79 years old female admitted on 03/04/19 for opiate withdrawal sx management treated with methadone detox regimen patient tolerated well alert oriented x 3 cardiac s1s2 regular rate rhythm respiratory clear lung bilaterally on auscultation extremities full range of motion Pertinent Past History: reports sister will pick her up from detox facility back home and has appointment with primary care provider tomorrow states that she prefers to utilize community support network for recovery - Physical Exam Results Vital Signs: Vital Signs Temperature 98.6 F 03/09/19 06:52 Pulse Rate 83 03/09/19 09:23 Respiratory Rate 18 03/09/19 09:23 Blood Pressure 147/75 03/09/19 09:23 O2 Sat by Pulse Oximetry (%) Pertinent Admission Physical Exam Findings: opiate withdrawal Laboratory Last Values WBC 6.4 K/mm3 (4.0-10.0) 03/05/19 07:40 RBC 3.64 M/mm3 (3.60-5.2) 03/05/19 07:40 Hgb 11.9 GM/dL (10.7-15.3) 03/05/19 07:40 Hct 36.3 % (32.4-45.2) 03/05/19 07:40 MCV 99.8 fl (80-96) H 03/05/19 07:40 MCH 32.7 pg (25.7-33.7) 03/05/19 07:40 MCHC 32.8 g/dl (32.0-36.0) 03/05/19 07:40 RDW 13.5 % (11.6-15.6) 03/05/19 07:40 Plt Count 156 K/MM3 (134-434) 03/05/19 07:40 MPV 10.4 fl (7.5-11.1) 03/05/19 07:40 Sodium 142 mmol/L (136-145) 03/05/19 07:40 Potassium 4.0 mmol/L (3.5-5.1) 03/07/19 07:45 Chloride 110 mmol/L (98-107) H 03/05/19 07:40 Carbon Dioxide 24 mmol/L (21-32) 03/05/19 07:40 Anion Gap 8 MMOL/L (8-16) 03/05/19 07:40 BUN 19.6 mg/dL (7-18) H 03/05/19 07:40 Creatinine 1.0 mg/dL (0.55-1.3) 03/05/19 07:40 Est GFR (CKD-EPI)AfAm 62.93 03/05/19 07:40 Est GFR (CKD-EPI)NonAf 54.30 03/05/19 07:40 Random Glucose 91 mg/dL (74-106) 03/05/19 07:40 Calcium 8.7 mg/dL (8.5-10.1) 03/05/19 07:40 Total Bilirubin 0.4 mg/dL (0.2-1) 03/05/19 07:40 AST 5 U/L (15-37) L 03/05/19 07:40 ALT 12 U/L (13-61) L 03/05/19 07:40 Alkaline Phosphatase 86 U/L (45-117) 03/05/19 07:40 Total Protein 5.9 g/dl (6.4-8.2) L 03/05/19 07:40 Albumin 3.1 g/dl (3.4-5.0) L 03/05/19 07:40 Urine Color Yellow 03/07/19 08:00 Urine Appearance Clear 03/07/19 08:00 Urine pH 5.5 (5.0-8.0) 03/07/19 08:00 Ur Specific [place] 1.022 (1.010-1.035) 03/07/19 08:00 Urine Protein 1+ (NEGATIVE) H 03/07/19 08:00 Urine Glucose (UA) Negative (NEGATIVE) 03/07/19 08:00 Urine Ketones Negative (NEGATIVE) 03/07/19 08:00 Urine Blood Negative (NEGATIVE) 03/07/19 08:00 Urine Nitrite Negative (NEGATIVE) 03/07/19 08:00 Urine Bilirubin Negative (NEGATIVE) 03/07/19 08:00 Urine Urobilinogen 0.2 mg/dL (0.2-1.0) 03/07/19 08:00 Ur Leukocyte Esterase Negative (NEGATIVE) 03/07/19 08:00 Urine WBC (Auto) 2 /hpf (0-5) 03/07/19 08:00 Urine RBC (Auto) 2 /hpf (0-4) 03/07/19 08:00 Urine Casts (Auto) 1 /lpf (0-8) 03/07/19 08:00 U Epithel Cells (Auto) 2.7 /HPF (0-5/HPF) 03/07/19 08:00 Urine Bacteria (Auto) 162.1 /hpf (NEGATIVE) 03/07/19 08:00 RPR Titer Nonreactive (NONREACTIVE) 03/05/19 07:40 lab noted - Treatment Hospital Course: Detox Protocol Followed, Detoxed Safely, Responded well, Discharged Condition Good, Rehab Referral Accepted Patient has Accepted a Rehab Referral to: community support approach - Medication Discharge Medications: Ambulatory Orders Amlodipine Besylate 10 mg PO DAILY 03/04/19 Ciprofloxacin HCl [Cipro] 500 mg PO BID 03/04/19 Famotidine 20 mg PO BID 03/04/19 Metoprolol Succinate 100 mg PO DAILY 03/04/19 Pravastatin Sodium 10 mg PO HS 03/04/19 Naloxone HCl [Narcan] 4 mg NS ASDIR PRN #1 spray 03/06/19 - Diagnosis (1) Substance induced mood disorder Status: Suspected (2) Opioid dependence with withdrawal Status: Acute (3) Essential (primary) hypertension Status: Chronic (4) GERD (gastroesophageal reflux disease) Status: Chronic Qualifiers: Esophagitis presence: without esophagitis Qualified Code(s): K21.9 - Gastro -esophageal reflux disease without esophagitis - AMA Did Patient Leave Against Medical Advice: No COWS (PN) - Opiate Withdrawal Resting Pulse: 1= [place] 81-100 Sweatin= No chills or Flushing Restless Observation: 0= Sits Still Pupil Size: 0= Normal to Room Light Bone or Joint Aches: 0= None Runny Nose/ Eye Tearin= None GI Upset > 30mins: 0= None Tremor Observation of Outstretched Hands: 0= None Yawning Observation: 0= None Anxiety or Irritability: 1=Feels Anxious/Irritable Goose Flesh Skin: 0=Smooth Skin COWS Score: 2
== END 2019-03-09 12:48 | disposition home or self-care (01) | DRG 773 ==
LOC: YASAS 16:40 → Y3N 21:21
PROVIDERS: ADMIT Allergy & Immunology; ATTEND Allergy & Immunology
PROC: HZ2ZZZZ Detoxification Services for Substance Abuse Treatment (ICD-10-PCS; principal; 2019-03-04)
DX: F11.23 Opioid dependence with withdrawal (principal); F19.24 Other psychoactive substance dependence with psychoactive substance-induced mood disorder; F41.9 Anxiety disorder, unspecified; I10 Essential (primary) hypertension; K21.9 Gastro-esophageal reflux disease without esophagitis; R00.0 Tachycardia, unspecified; Z87.440 Personal history of urinary (tract) infections; Z87.891 Personal history of nicotine dependence
CPT/HCPCS: 36415; 80053; 81003; 84132; 85027; 86593; 93005; 93010